=== PATIENT | male | born 1955 | race Caucasian/White ===

== ENCOUNTER → 2016-11-15 | Outpatient (CLI) | payer BC ==
[~2016-11-15] MED LIST: ASPI325T45 PO; DIPH25TA24 PO; GLUCTAB7; MULTTAB58 PO
--- NOTE | 2016-11-15 10:45 | DIAGNOSTIC IMAGING REPORT ---
LUMBAR SPINE MIN 4 VIEWS CLINICAL HISTORY: Low back pain with left buttock pain COMPARISON STUDY: No previous studies for comparison. FINDINGS: There is a minor spinal curvature convex to the left. There are 5 lumbar type vertebral bodies. There is a grade 1 spondylolisthesis of L4 on L5. No fractures or destructive lesions are visualized. IMPRESSION: Grade 1 spondylolisthesis of L4 on L5. No fractures identified. Electronically signed by: Zana Perez M.D. 11/15/2016 10:43 AM Dictated Date/Time: 11/15/2016 10:42 AM
== END | disposition home or self-care (01) ==
LOC: C.RDSM 10:10
PROVIDERS: ATTEND Internal Medicine
DX: M43.16 Spondylolisthesis, lumbar region (principal)